=== PATIENT | male | born 1980 | race Two or more races ===

== ENCOUNTER 2018-06-11 06:54 | Day surgery (SDC) | payer OTHER ==
[2018-06-10 10:01] VITALS: BMI 40.8
[2018-06-11] MEDS ORDERED: LIDOCAINE HCL/PF 2% SDV 5ML VIAL ONE (07:51)
[2018-06-11] MEDS ORDERED: PROPOFOL 20 ML ONE (07:51)
[2018-06-11] MEDS ORDERED: MIDAZOLAM HCL 2 MG/2 ML SINGLE DOSE VIAL ONE (07:51)
--- NOTE | 2018-06-11 08:07 | HP ---
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[employer]URE: No: Alzheimer's, CVA, Dementia, Migraine, Multiple Sclerosis, Peripheral Neuropathy, Parkinson's, Seizure, Syncope, TIA, Vertigo, Other Cardiovascular: No: AFIB, Aneurysm, Aortic Insufficiency, Aortic Stenosis, CAD, CHF, Deep Vein Thrombosis, HTN, Hyperlipdemia, MD, Mitral Insufficiency, Mitral Stenosis, Murmur, Pulmonary Hypertension, Other Pulmonary: No: Asthma, Bronchitis, Cancer, COPD, O2 Dependent, Pneumonia, Previously Intubated, Pulmonary Embolus, Pulmonary Fibrosis, Sleep Apnea, Other Gastrointestinal: No: Ascites, Cancer, Constipation, Crohn's Disease, Diverticulitis, Diverticulosis, Esophageal Varices, Gastritis, GERD, GI Bleed, Hemorrhoids, Hiatal Hernia, Inflamatory Bowel Disease, Irritable Bowel Disease, Pancreatitis, Peptic Ulcer Disease, Ulcerative Colitis, Other Hepatobiliary: No: Cirrhosis, Cholelithiasis, Cholecystitis, Choledocholithiasis , Hepatitis A, Hepatitis B, Hepatitis C, Other Renal/: Yes: Renal Calculi Heme/Onc: No: Anemia, B12 Deficiency, Bleeding Disorder, Cancer, Current Chemotherapy, Current Radiation Therapy, Hemochromatosis, Hypercoaguable State, Myeloproliferative Synd, Sickle Cell Disease, Sickle Cell Trait, Thrombocytopenia, Other - Current Medications Current Medications: Home Medications Medication Instructions Recorded Carvedilol 25 mg PO BID 12/10/17 Amlodipine Besylate/Benazepril 2 each PO DAILY 06/10/18 [Lotrel 5-20 mg Capsule] [facility] Physical Exam - Physical Examination Vital Signs: Vital Signs Period Temp Pulse Resp BP Sys/Timmons Pulse Ox Last 24 Hr 97.8 F-97.8 F 76-76 16-16 134-134/73-73 98 General Appearance: Well Nourished, Well Developed, Alert & Oriented x3 ENT: Clear, No Discharge, No masses Lung: Clear to auscultation Heart: Regular rate & rhythm, Normal S1, Normal S2 Abdomen: Soft, No tenderness, No CVA Satellite Impression/Plan - Impression/Plan Impression: left lower pole calculus Operative Procedure: ESWL, left Date to be Performed: 06/11/18
[2018-06-11] MEDS ORDERED: ACETAMINOPHEN 1000 MG/100 ML VIAL (NON FORMULARY) IVPB ONE (08:08)
[2018-06-11] MEDS ORDERED: ceFAZolin SODIUM 1 GM VIAL ONE (08:15)
[2018-06-11] MEDS ORDERED: DEXTROSE 5%-0.45% SALINE 1,000 ML IV SCH (08:15)
[2018-06-11] MEDS ORDERED: ceFAZolin SODIUM 1 GM VIAL IVPB ONE (08:18)
[2018-06-11] MEDS ORDERED: ONDANSETRON 4 MG/2 ML VIAL IVPUSH PRN (08:50)
[2018-06-11] MEDS ORDERED: oxyCODONE HCL 5 MG TABLET PO PRN (08:50)
[2018-06-11] MEDS ORDERED: LACTATED RINGERS SOLUTION 1,000 ML IV SCH (09:00)
[2018-06-11] MEDS ORDERED: IBUPROFEN 800 MG/8 ML IJ IVPB SCH (09:00)
[2018-06-11] MEDS ORDERED: ACETAMINOPHEN INJECTION 100 ML IVPB ONE (09:08)
[2018-06-11 09:18] VITALS: TEMP 97.7
[2018-06-11 11:39] VITALS: BP 138/82; PULSE 60
--- NOTE | 2018-07-05 22:05 | OP ---
DATE OF OPERATION: 07/12/2018 PREOPERATIVE DIAGNOSIS: Left renal calculus. POSTOPERATIVE DIAGNOSIS: Left renal calculus. PROCEDURE: Extracorporeal shockwave lithotripsy left side. ANESTHESIA: General anesthesia. SURGEON: Ismael Morales M.D. PREOPERATIVE INDICATION: The patient has a 7-mm lower pole left ureteral calculus. Comes for ESWL. DESCRIPTION OF PROCEDURE: Patient is brought to the OR, placed on the table in the supine position, given general anesthesia, IV antibiotics, timeouts performed. The stone was visualized in multiple planes on fluoroscopy in the lower pole of the left kidney. 2500 shocks were applied to the stone. Patient tolerated the procedure well, was woken up. ISMAEL MORALES M.D. [id number]
== END 2018-06-11 11:30 | disposition home or self-care (01) ==
LOC: JASU-SURG 06:54
PROVIDERS: ATTEND Urology
PROC: 0TF4XZZ Fragmentation in Left Kidney Pelvis, External Approach (ICD-10-PCS; principal; 2018-06-11 08:00)
DX: N20.0 Calculus of kidney (principal)
CPT/HCPCS: 94760; J0131